=== PATIENT | male | born 1945 | race Caucasian/White ===

== ENCOUNTER 2019-06-24 13:28 | Inpatient (IN) ==
[2019-06-24] MEDS ORDERED: NALOXONE 0.4 MG/ML VIAL ONE ×2 (13:38→13:41)
[2019-06-24] MEDS ORDERED: ALBUTEROL NEB SOLN 5 MG/ML 20 ML/BOTTLE CONT NEB STA (13:48)
[2019-06-24] MEDS ORDERED: FLUMAZENIL 1 MG/10 ML VIAL IV PRN (13:48)
[2019-06-24] MEDS ORDERED: NALOXONE 0.4 MG/ML VIAL IV STA (13:48)
[2019-06-24] MEDS ORDERED: FLUMAZENIL 0.5 MG/5 ML VIAL IV ONE (13:50)
[2019-06-24] MEDS ORDERED: SODIUM CHLORIDE 0.9% 1,000 ML IV STA ×2 (13:56→14:45)
[2019-06-24 14:23] LABS: Basophils % 0.7 % (0.0-0.8); Eosinophils % 0.7 % (0.00-10.9); Hematocrit 25.2 VOL% (42.0-52.0); Hemoglobin 7.6 GM/DL (14.0-18.0); Immature Granulocytes % 0.5 %; Immature Granulocytes Absolute 0.02 #; Lymphocytes # 0.8 10*3/uL (1.4-4.0); Lymphocytes % 19.7 % (21.2-54.2); Mean Corpuscular HGB Conc 30.2 GM/DL (32-36); Mean Corpuscular Volume 105.9 FL (87-102); Mean Platelet Volume 12.4 FL (9.6-12.0); Monocytes % 9.6 % (1.7-12.7); Neutrophils % 68.8 % (38.7-73.9); Platelet Count 126 T/CUMM (130-400); Red Blood Count 2.38 MC/CUMM (3.8-5.5); White Blood Count 4.3 T/CUMM (4-12)
[2019-06-24 14:27] LABS: Apearance,Urine CLEAR (Clear); Bilirubin,Urine Negative (Negative); Blood, Urine Negative (Negative); Glucose,Urine (UA) 50 mg/dL (Negative); Hyaline Casts,Urine 8 /LPF (0-3); Ketones,Urine 5 mg/dL (Negative); Mucus,Urine Occasional /LPF (Occasional); Nitrite,Urine Negative (Negative); Protein,Urine 30 MG/DL; RBC,Urine 1 /HPF (0-4); Squamous Epithelial Cell,Urine Occasional /HPF (0-10); Urine Color Yellow (Yellow); Urine Specific Gravity 1.024 (1.001-1.035); Urine Urobilinogen < 2.0 EU/DL (0.2-1.0); WBC,Urine 1 /HPF (0-6)
[2019-06-24 14:32] LABS: Partial Thromboplastin Time 23.4 SECS (20.8-36.0)
[2019-06-24 14:32] LABS: Barbiturates Screen,Urine Negative (Negative); Benzodiazepines Screen,Urine Negative (Negative); Cannabinoid Screen,Urine Negative (Negative); Opiate Screen,Urine Positive (Negative); Phencyclidine Screen,Urine Negative (Negative)
[2019-06-24] MEDS ORDERED: PANTOPRAZOLE 40 MG VIAL IV STA (14:35)
[2019-06-24 14:48] LABS: Acetaminophen 9.1 UG/ML (10-30); Salicylate < 2.8 MG/DL (2.8-20)
[2019-06-24 14:51] LABS: Alanine Aminotransferase 29 U/L (16-61); Albumin 2.9 G/DL (3.4-5.0); Alkaline Phosphatase 84 U/L (45-117); Aspartate Amino Transferase 57 U/L (0-37); Blood Urea Nitrogen 31 MG/DL (7-18); Calcium 8.1 MG/DL (8.5-10.1); Glucose 249 MG/DL (74-106); Osmolality,Calculated 297.1 MOS/KG (273-304); Total Protein 6.2 G/DL (6.4-8.3)
[2019-06-24 14:52] LABS: CKMB % 11.6 %
[2019-06-24 15:00] LABS: ABG Base Excess 3.5 MMOL/L (-2.5-2.5); ABG HCO3 27.5 MMOL/L (20-26); ABG Oxygen Saturation 99.1 % (95-100); ABG PCO2 48.1 MM HG (35-48); ABG PH 7.388 (7.35-7.45); ABG TCO2 27.1 MMOL/L (23-27); Pt O2 Delivery Device Other
[2019-06-24] MEDS ORDERED: NOREPINEPHRINE 4 MG/4 ML VIAL IV ONE (15:16)
[2019-06-24] MEDS ORDERED: VANCOMYCIN INJ 1,000 MG in SODIUM CHLORIDE 0.9% 250 ML IV STA (15:18)
[2019-06-24] MEDS: NOREPINEPHRINE 8 MG in SODIUM CHLORIDE 0.9% 242 ML IV PRN (15:29)
[2019-06-24 16:29] LABS: ABG Base Excess 2.3 MMOL/L (-2.5-2.5); ABG HCO3 30.2 MMOL/L (20-26); ABG Oxygen Saturation 94.5 % (95-100); ABG PCO2 67.5 MM HG (35-48); ABG PH 7.268 (7.35-7.45); ABG PO2 87.3 MM HG (80-95); ABG TCO2 32.2 MMOL/L (23-27)
[2019-06-24] MEDS ORDERED: ALBUTEROL 2.5 MG/3 ML NEB RESP TX PRN (16:33)
[2019-06-24] MEDS ORDERED: ONDANSETRON 4 MG/2 ML VIAL IV PRN (16:33)
[2019-06-24] MEDS ORDERED: DEXTROSE 50% 25 GM/50 ML VIAL IV PRN (16:43)
[2019-06-24] MEDS ORDERED: GLUCAGON 1 MG VIAL IM PRN (16:43)
[2019-06-24] MEDS ORDERED: VECURONIUM 10 MG VIAL IV ONE (16:53)
[2019-06-24] MEDS ORDERED: VECURONIUM 10 MG VIAL IV STA (16:56)
[2019-06-24] MEDS ORDERED: SODIUM CHLORIDE 0.9% 1,000 ML IV PRN (17:01)
[2019-06-24] MEDS ORDERED: ETOMIDATE 20 MG/10 ML VIAL IV ONE (17:46)
[2019-06-24] MEDS ORDERED: ROCURONIUM 100 MG/10 ML VIAL IV ONE (17:47)
[2019-06-24] MEDS: PIPERACILLIN/TAZOBACTAM 3,375 MG in SODIUM CHLORIDE 0.9% 100 ML IV SCH (18:48)
[2019-06-24] MEDS: LEVOFLOXACIN INJ 750 MG in PREMIX 1 EACH IV SCH (18:48)
[2019-06-24] MEDS: SODIUM CHLORIDE 0.9% 1,000 ML IV SCH (18:48)
[2019-06-24] MEDS: ALBUTEROL/IPRATROPIUM 3 ML NEB RESP TX SCH (20:04)
[2019-06-24] MEDS: PROPOFOL 1,000 MG/100 ML BOTTLE IV SCH (20:30)
[2019-06-24] MEDS ORDERED: SODIUM CHLORIDE 0.9% 450 ML IV ONE (20:55)
[2019-06-24] MEDS: INSULIN REGULAR 100 UNIT/ML SUBCUT SCH (23:04)
[2019-06-25] MEDS: ALBUTEROL/IPRATROPIUM 3 ML NEB RESP TX SCH ×4 (01:13→19:27)
[2019-06-25] MEDS: PROPOFOL 1,000 MG/100 ML BOTTLE IV SCH ×5 (01:30→18:40)
[2019-06-25] MEDS: SODIUM CHLORIDE 0.9% 1,000 ML IV SCH ×3 (01:30→19:47)
[2019-06-25] MEDS: PIPERACILLIN/TAZOBACTAM 3,375 MG in SODIUM CHLORIDE 0.9% 100 ML IV SCH ×3 (01:55→16:40)
[2019-06-25] MEDS: NOREPINEPHRINE 8 MG in SODIUM CHLORIDE 0.9% 242 ML IV PRN ×3 (02:42→21:53)
[2019-06-25 03:12] LABS: ABG Base Excess 3.3 MMOL/L (-2.5-2.5); ABG HCO3 27.3 MMOL/L (20-26); ABG Oxygen Saturation 97.6 % (95-100); ABG PH 7.267 (7.35-7.45); ABG TCO2 29.6 MMOL/L (23-27); Allen Test Positive; Pt O2 Delivery Device Ventilator
[2019-06-25 03:19] LABS: ABG PCO2 71.2 MM HG (35-48)
[2019-06-25 04:43] LABS: Basophils % 0.4 % (0.0-0.8); Eosinophils % 0.4 % (0.00-10.9); Hematocrit 34.6 VOL% (42.0-52.0); Immature Granulocytes % 0.5 %; Immature Granulocytes Absolute 0.05 #; Lymphocytes # 1.2 10*3/uL (1.4-4.0); Lymphocytes % 12.3 % (21.2-54.2); Mean Corpuscular HGB Conc 30.9 GM/DL (32-36); Mean Corpuscular Volume 101.8 FL (87-102); Mean Platelet Volume 11.7 FL (9.6-12.0); Monocytes % 10.4 % (1.7-12.7); Red Cell Distribution Width 16.3 % (9.3-17.3)
[2019-06-25 04:46] LABS: White Blood Count 9.6 T/CUMM (4-12)
[2019-06-25 04:47] LABS: Hemoglobin 10.7 GM/DL (14.0-18.0); Platelet Count 179 T/CUMM (130-400)
[2019-06-25 05:02] LABS: Albumin 2.9 G/DL (3.4-5.0); Calcium 7.4 MG/DL (8.5-10.1); Total Protein 6.3 G/DL (6.4-8.3)
[2019-06-25] MEDS: PANTOPRAZOLE 40 MG VIAL IV SCH ×2 (05:41→16:40)
[2019-06-25] MEDS: INSULIN REGULAR 100 UNIT/ML SUBCUT SCH ×4 (09:18→21:05)
[2019-06-25] MEDS: LEVOFLOXACIN INJ 750 MG in PREMIX 1 EACH IV SCH (16:42)
[2019-06-26] MEDS: ALBUTEROL/IPRATROPIUM 3 ML NEB RESP TX SCH ×4 (00:36→20:15)
[2019-06-26] MEDS: PROPOFOL 1,000 MG/100 ML BOTTLE IV SCH ×5 (01:00→15:54)
[2019-06-26] MEDS: PIPERACILLIN/TAZOBACTAM 3,375 MG in SODIUM CHLORIDE 0.9% 100 ML IV SCH ×3 (01:11→16:09)
[2019-06-26 04:23] LABS: Calcium 7.2 MG/DL (8.5-10.1); Osmolality,Calculated 290.7 MOS/KG (273-304)
[2019-06-26 04:26] LABS: Basophils % 0.6 % (0.0-0.8); Eosinophils # 0.1 10*3/uL (0.0-0.87); Eosinophils % 1.1 % (0.00-10.9); Hematocrit 31.4 VOL% (42.0-52.0); Immature Granulocytes % 0.5 %; Immature Granulocytes Absolute 0.03 #; Lymphocytes # 0.8 10*3/uL (1.4-4.0); Lymphocytes % 12.6 % (21.2-54.2); Mean Corpuscular HGB Conc 31.8 GM/DL (32-36); Mean Corpuscular Volume 100.6 FL (87-102); Mean Platelet Volume 12.2 FL (9.6-12.0); Monocytes % 11.2 % (1.7-12.7); Red Blood Count 3.12 MC/CUMM (3.8-5.5); Red Cell Distribution Width 15.3 % (9.3-17.3)
[2019-06-26 04:27] LABS: ABG Base Excess 3.4 MMOL/L (-2.5-2.5); ABG HCO3 27.4 MMOL/L (20-26); ABG Oxygen Saturation 97.9 % (95-100); ABG PCO2 46.7 MM HG (35-48); ABG PH 7.399 (7.35-7.45); ABG PO2 92.2 MM HG (80-95); ABG TCO2 25.7 MMOL/L (23-27)
[2019-06-26 04:28] LABS: Allen Test Positive; Pt O2 Delivery Device Ventilator
[2019-06-26] MEDS: SODIUM CHLORIDE 0.9% 1,000 ML IV SCH ×5 (04:28→23:44)
[2019-06-26 05:07] LABS: Platelet Count 134 T/CUMM (130-400); White Blood Count 6.6 T/CUMM (4-12)
[2019-06-26] MEDS: PANTOPRAZOLE 40 MG VIAL IV SCH ×2 (05:21→17:28)
[2019-06-26] MEDS: INSULIN REGULAR 100 UNIT/ML SUBCUT SCH ×4 (07:46→22:06)
[2019-06-26] MEDS ORDERED: MAGNESIUM SULF RIDER 2 GM in PREMIX 1 EACH IV ONE (10:30)
[2019-06-26] MEDS ORDERED: POTASSIUM CHLORIDE 20 MEQ/15 ML UDCUP PER TUBE ONE (10:30)
[2019-06-26] MEDS: ASCORBIC ACID 500 MG TABLET PO SCH ×2 (12:37→21:45)
[2019-06-26] MEDS: LEVOFLOXACIN INJ 750 MG in PREMIX 1 EACH IV SCH (16:13)
[2019-06-26] MEDS: MORPHINE 4 MG/1 ML VIAL IV PRN ×2 (18:17→21:44)
[2019-06-26] MEDS: LORazepam 2 MG/1 ML VIAL IV PRN (23:45)
[2019-06-27] MEDS: ALBUTEROL/IPRATROPIUM 3 ML NEB RESP TX SCH ×4 (00:47→19:58)
[2019-06-27] MEDS: LORazepam 2 MG/1 ML VIAL IV PRN ×2 (01:06→08:09)
[2019-06-27] MEDS: PIPERACILLIN/TAZOBACTAM 3,375 MG in SODIUM CHLORIDE 0.9% 100 ML IV SCH ×3 (01:25→19:09)
[2019-06-27 01:47] LABS: ABG Base Excess -0.2 MMOL/L (-2.5-2.5); ABG HCO3 24.2 MMOL/L (20-26); ABG PCO2 46.3 MM HG (35-48); ABG PH 7.353 (7.35-7.45); ABG PO2 66.3 MM HG (80-95); ABG TCO2 23.4 MMOL/L (23-27); Allen Test Positive
[2019-06-27] MEDS: MORPHINE 4 MG/1 ML VIAL IV PRN ×5 (02:38→22:28)
[2019-06-27] MEDS: PANTOPRAZOLE 40 MG VIAL IV SCH ×2 (04:04→19:08)
[2019-06-27] MEDS ORDERED: FUROSEMIDE 40 MG/4 ML VIAL IV ONE (07:49)
[2019-06-27] MEDS ORDERED: FUROSEMIDE 40 MG/4 ML VIAL ONE (07:50)
[2019-06-27 07:51] LABS: Pt O2 Delivery Device Other
[2019-06-27 07:52] LABS: ABG Base Excess -2.2 MMOL/L (-2.5-2.5); ABG HCO3 22.5 MMOL/L (20-26); ABG Oxygen Saturation 93.3 % (95-100); ABG PCO2 43.8 MM HG (35-48); ABG PO2 66.5 MM HG (80-95); ABG TCO2 21.5 MMOL/L (23-27)
[2019-06-27] MEDS: ASCORBIC ACID 500 MG TABLET PO SCH ×2 (09:43→20:23)
[2019-06-27] MEDS: SODIUM CHLORIDE 0.9% 1,000 ML IV SCH ×2 (09:43→18:57)
[2019-06-27] MEDS: INSULIN REGULAR 100 UNIT/ML SUBCUT SCH ×4 (09:45→20:42)
[2019-06-27 12:40] LABS: Basophils % 0.6 % (0.0-0.8); Eosinophils % 0.4 % (0.00-10.9); Hematocrit 33.2 VOL% (42.0-52.0); Hemoglobin 10.3 GM/DL (14.0-18.0); Immature Granulocytes % 0.4 %; Immature Granulocytes Absolute 0.02 #; Lymphocytes # 0.6 10*3/uL (1.4-4.0); Lymphocytes % 13.5 % (21.2-54.2); Mean Corpuscular Volume 102.2 FL (87-102); Mean Platelet Volume 11.6 FL (9.6-12.0); Monocytes % 10.8 % (1.7-12.7); Neutrophils % 74.3 % (38.7-73.9); Platelet Count 115 T/CUMM (130-400); Red Blood Count 3.25 MC/CUMM (3.8-5.5); Red Cell Distribution Width 14.5 % (9.3-17.3); White Blood Count 4.7 T/CUMM (4-12)
[2019-06-27 13:19] LABS: Calcium 7.2 MG/DL (8.5-10.1); Osmolality,Calculated 289.8 MOS/KG (273-304)
[2019-06-27] MEDS ORDERED: MAGNESIUM SULF RIDER 2 GM in PREMIX 1 EACH IV ONE (13:52)
[2019-06-27] MEDS ORDERED: LACTULOSE 20 GM/30 ML UDCUP PO PRN (14:43)
[2019-06-27] MEDS ORDERED: POLYETHYLENE GLYCOL POWDER 17 GM PACK PO PRN (14:43)
[2019-06-27] MEDS: BISACODYL 5 MG TABLET PO PRN (15:09)
[2019-06-27] MEDS ORDERED: LORazepam 2 MG/1 ML VIAL IV PRN (16:00)
[2019-06-27] MEDS: LEVOFLOXACIN INJ 750 MG in PREMIX 1 EACH IV SCH (19:08)
[2019-06-27] MEDS: PROPOFOL 1,000 MG/100 ML BOTTLE IV SCH (19:36)
[2019-06-28] MEDS: ALBUTEROL/IPRATROPIUM 3 ML NEB RESP TX SCH ×4 (00:59→21:30)
[2019-06-28] MEDS: SODIUM CHLORIDE 0.9% 1,000 ML IV SCH ×2 (01:03→10:09)
[2019-06-28] MEDS: PIPERACILLIN/TAZOBACTAM 3,375 MG in SODIUM CHLORIDE 0.9% 100 ML IV SCH ×3 (01:07→17:14)
[2019-06-28] MEDS: MORPHINE 4 MG/1 ML VIAL IV PRN ×3 (02:04→08:00)
[2019-06-28 04:44] LABS: Calcium 7.2 MG/DL (8.5-10.1); Osmolality,Calculated 285.1 MOS/KG (273-304)
[2019-06-28 04:56] LABS: Basophils % 0.9 % (0.0-0.8); Eosinophils % 0.9 % (0.00-10.9); Hematocrit 33.3 VOL% (42.0-52.0); Hemoglobin 10.6 GM/DL (14.0-18.0); Immature Granulocytes % 1.3 %; Immature Granulocytes Absolute 0.06 #; Lymphocytes # 0.5 10*3/uL (1.4-4.0); Lymphocytes % 10.2 % (21.2-54.2); Mean Corpuscular HGB Conc 31.8 GM/DL (32-36); Mean Corpuscular Volume 101.5 FL (87-102); Mean Platelet Volume 12.1 FL (9.6-12.0); Monocytes % 9.7 % (1.7-12.7); NRBC # 0.02 10*3/uL; Platelet Count 108 T/CUMM (130-400); Red Blood Count 3.28 MC/CUMM (3.8-5.5); Red Cell Distribution Width 14.4 % (9.3-17.3); White Blood Count 4.5 T/CUMM (4-12)
[2019-06-28] MEDS: PANTOPRAZOLE 40 MG VIAL IV SCH ×2 (05:10→17:14)
[2019-06-28] MEDS ORDERED: SUCCINYLCHOLINE 200 MG/10 ML VIAL ONE (08:31)
[2019-06-28] MEDS ORDERED: ETOMIDATE 20 MG/10 ML VIAL IV ONE (08:31)
[2019-06-28] MEDS: INSULIN REGULAR 100 UNIT/ML SUBCUT SCH ×4 (10:09→21:04)
[2019-06-28] MEDS: ASCORBIC ACID 500 MG TABLET PO SCH ×2 (10:10→21:05)
[2019-06-28] MEDS: TAMSULOSIN 0.4 MG CAPSULE PO SCH (10:10)
[2019-06-28] MEDS: NICOTINE 21 MG/24 HR PATCH TRANSDERM SCH (10:11)
[2019-06-28] MEDS: ASPIRIN EC 81 MG TABLET PO SCH (12:30)
[2019-06-28] MEDS: ALUMINUM/MAGNES/SIMETH MAX STR 30 ML UDCUP PO PRN (12:31)
[2019-06-28] MEDS: LEVOFLOXACIN INJ 750 MG in PREMIX 1 EACH IV SCH (17:14)
[2019-06-29] MEDS: PIPERACILLIN/TAZOBACTAM 3,375 MG in SODIUM CHLORIDE 0.9% 100 ML IV SCH ×3 (00:30→17:52)
[2019-06-29] MEDS: ALBUTEROL/IPRATROPIUM 3 ML NEB RESP TX SCH ×4 (01:56→19:52)
[2019-06-29] MEDS: LORazepam 1 MG TABLET PO PRN ×2 (02:08→16:28)
[2019-06-29] MEDS: PANTOPRAZOLE 40 MG VIAL IV SCH ×2 (06:45→16:20)
[2019-06-29] MEDS: TAMSULOSIN 0.4 MG CAPSULE PO SCH (08:45)
[2019-06-29] MEDS: ASCORBIC ACID 500 MG TABLET PO SCH ×2 (08:45→21:28)
[2019-06-29] MEDS: INSULIN REGULAR 100 UNIT/ML SUBCUT SCH ×4 (08:46→21:28)
[2019-06-29] MEDS: ASPIRIN EC 81 MG TABLET PO SCH (08:46)
[2019-06-29] MEDS: NICOTINE 21 MG/24 HR PATCH TRANSDERM SCH (08:46)
[2019-06-29] MEDS: BISACODYL 5 MG TABLET PO PRN (09:02)
[2019-06-29 11:35] LABS: Calcium 8.1 MG/DL (8.5-10.1)
[2019-06-29] MEDS: ALUMINUM/MAGNES/SIMETH MAX STR 30 ML UDCUP PO PRN (12:20)
[2019-06-29] MEDS: SIMETHICONE CHEW 125 MG TABLET PO PRN ×2 (12:20→14:51)
[2019-06-29] MEDS: POTASSIUM CHLORIDE 20 MEQ TABLET PO SCH (14:07)
[2019-06-29] MEDS: SUCRALFATE 1 GM/10 ML UDCUP PO SCH ×2 (16:20→21:28)
[2019-06-29] MEDS: LEVOFLOXACIN INJ 750 MG in PREMIX 1 EACH IV SCH (16:21)
[2019-06-29] MEDS: traZODone 50 MG TABLET PO PRN (21:28)
[2019-06-30] MEDS: LORazepam 1 MG TABLET PO PRN ×2 (00:19→10:03)
[2019-06-30] MEDS: PIPERACILLIN/TAZOBACTAM 3,375 MG in SODIUM CHLORIDE 0.9% 100 ML IV SCH ×2 (00:20→10:04)
[2019-06-30] MEDS: ALBUTEROL/IPRATROPIUM 3 ML NEB RESP TX SCH ×4 (01:16→19:57)
[2019-06-30] MEDS: PANTOPRAZOLE 40 MG VIAL IV SCH ×2 (04:43→17:09)
[2019-06-30 04:58] LABS: Basophils % 0.6 % (0.0-0.8); Eosinophils % 1.2 % (0.00-10.9); Hematocrit 34.2 VOL% (42.0-52.0); Hemoglobin 10.8 GM/DL (14.0-18.0); Immature Granulocytes % 0.6 %; Immature Granulocytes Absolute 0.02 #; Lymphocytes # 0.4 10*3/uL (1.4-4.0); Lymphocytes % 11.8 % (21.2-54.2); Mean Corpuscular HGB Conc 31.6 GM/DL (32-36); Mean Corpuscular Volume 100.9 FL (87-102); Mean Platelet Volume 11.3 FL (9.6-12.0); Monocytes % 14.6 % (1.7-12.7); Neutrophils % 71.2 % (38.7-73.9); Platelet Count 129 T/CUMM (130-400); Red Blood Count 3.39 MC/CUMM (3.8-5.5); Red Cell Distribution Width 13.6 % (9.3-17.3); White Blood Count 3.2 T/CUMM (4-12)
[2019-06-30 05:17] LABS: Calcium 8.4 MG/DL (8.5-10.1); Osmolality,Calculated 298.3 MOS/KG (273-304)
[2019-06-30 05:24] LABS: Albumin 2.8 G/DL (3.4-5.0); Bilirubin,Total 0.8 MG/DL (0.2-1.0); Calcium 8.5 MG/DL (8.5-10.1); Osmolality,Calculated 295.6 MOS/KG (273-304); Total Protein 6.6 G/DL (6.4-8.3)
[2019-06-30] MEDS: NICOTINE 21 MG/24 HR PATCH TRANSDERM SCH (10:02)
[2019-06-30] MEDS: INSULIN REGULAR 100 UNIT/ML SUBCUT SCH ×4 (10:02→21:12)
[2019-06-30] MEDS: POTASSIUM CHLORIDE 20 MEQ TABLET PO SCH ×2 (10:02→21:14)
[2019-06-30] MEDS: SUCRALFATE 1 GM/10 ML UDCUP PO SCH ×4 (10:03→21:13)
[2019-06-30] MEDS: ASPIRIN EC 81 MG TABLET PO SCH (10:03)
[2019-06-30] MEDS: TAMSULOSIN 0.4 MG CAPSULE PO SCH (10:03)
[2019-06-30] MEDS: ASCORBIC ACID 500 MG TABLET PO SCH ×2 (10:03→21:14)
[2019-06-30 12:02] LABS: ABG Base Excess 3.1 MMOL/L (-2.5-2.5); ABG HCO3 26.3 MMOL/L (20-26); ABG Oxygen Saturation 51.4 % (95-100); ABG PCO2 44.8 MM HG (35-48); ABG PH 7.408 (7.35-7.45); ABG TCO2 25.6 MMOL/L (23-27)
[2019-06-30 12:03] LABS: ABG PO2 27.6 MM HG (80-95)
[2019-06-30] MEDS ORDERED: FUROSEMIDE 40 MG/4 ML VIAL IV ONE (12:35)
[2019-06-30] MEDS: CHOLECALCIFEROL 5,000 UNIT TABLET PO SCH (14:09)
[2019-06-30] MEDS: traZODone 50 MG TABLET PO PRN (21:14)
[2019-07-01] MEDS: ALBUTEROL/IPRATROPIUM 3 ML NEB RESP TX SCH ×4 (00:45→20:15)
[2019-07-01] MEDS: PANTOPRAZOLE 40 MG VIAL IV SCH ×2 (05:11→17:02)
[2019-07-01 06:13] LABS: Basophils % 0.9 % (0.0-0.8); Eosinophils % 1.2 % (0.00-10.9); Hematocrit 34.5 VOL% (42.0-52.0); Hemoglobin 10.9 GM/DL (14.0-18.0); Immature Granulocytes % 0.3 %; Immature Granulocytes Absolute 0.01 #; Lymphocytes # 0.6 10*3/uL (1.4-4.0); Lymphocytes % 17.8 % (21.2-54.2); Mean Corpuscular HGB Conc 31.6 GM/DL (32-36); Mean Corpuscular Volume 100.3 FL (87-102); Mean Platelet Volume 11.7 FL (9.6-12.0); Monocytes % 9.8 % (1.7-12.7); Platelet Count 124 T/CUMM (130-400); Red Blood Count 3.44 MC/CUMM (3.8-5.5); Red Cell Distribution Width 13.8 % (9.3-17.3); White Blood Count 3.3 T/CUMM (4-12)
[2019-07-01 06:42] LABS: Calcium 8.7 MG/DL (8.5-10.1); Osmolality,Calculated 288.8 MOS/KG (273-304)
[2019-07-01] MEDS: NICOTINE 21 MG/24 HR PATCH TRANSDERM SCH (09:29)
[2019-07-01] MEDS: ASCORBIC ACID 500 MG TABLET PO SCH ×2 (09:29→21:49)
[2019-07-01] MEDS: TAMSULOSIN 0.4 MG CAPSULE PO SCH (09:29)
[2019-07-01] MEDS: POTASSIUM CHLORIDE 20 MEQ TABLET PO SCH ×2 (09:30→21:50)
[2019-07-01] MEDS: VENLAFAXINE XR 75 MG CAPSULE PO SCH (09:30)
[2019-07-01] MEDS: LORazepam 1 MG TABLET PO PRN (09:30)
[2019-07-01] MEDS: LEVOFLOXACIN 750 MG TABLET PO SCH (09:30)
[2019-07-01] MEDS: CHOLECALCIFEROL 5,000 UNIT TABLET PO SCH (09:30)
[2019-07-01] MEDS: ASPIRIN EC 81 MG TABLET PO SCH (09:30)
[2019-07-01] MEDS: INSULIN REGULAR 100 UNIT/ML SUBCUT SCH ×4 (09:31→21:50)
[2019-07-01] MEDS: SUCRALFATE 1 GM/10 ML UDCUP PO SCH ×4 (09:31→21:49)
[2019-07-01] MEDS: ALUMINUM/MAGNES/SIMETH MAX STR 30 ML UDCUP PO PRN (10:27)
[2019-07-01] MEDS: MULTIVITAMIN (OCUVITE) TABLET PO SCH (11:52)
[2019-07-01] MEDS: FOLIC ACID 1 MG TABLET PO SCH (11:52)
[2019-07-01] MEDS: THIAMINE 100 MG TABLET PO SCH (11:52)
[2019-07-01] MEDS ORDERED: MAGNESIUM SULF RIDER 2 GM in PREMIX 1 EACH IV ONE (13:58)
[2019-07-01] MEDS: SIMETHICONE CHEW 125 MG TABLET PO PRN (17:01)
[2019-07-01] MEDS: MAGNESIUM CHLORIDE 64 MG TABLET PO SCH (21:50)
[2019-07-01] MEDS: traZODone 50 MG TABLET PO PRN (21:50)
[2019-07-02] MEDS: ALBUTEROL/IPRATROPIUM 3 ML NEB RESP TX SCH ×4 (02:44→19:25)
[2019-07-02] MEDS: PANTOPRAZOLE 40 MG VIAL IV SCH ×2 (04:04→17:43)
[2019-07-02 06:01] LABS: Calcium 8.8 MG/DL (8.5-10.1); Osmolality,Calculated 289.8 MOS/KG (273-304)
[2019-07-02] MEDS ORDERED: FUROSEMIDE 20 MG/2 ML VIAL IV ONE ×2 (08:37→15:56)
[2019-07-02] MEDS: TAMSULOSIN 0.4 MG CAPSULE PO SCH (10:04)
[2019-07-02] MEDS: SUCRALFATE 1 GM/10 ML UDCUP PO SCH ×4 (10:04→20:24)
[2019-07-02] MEDS: INSULIN REGULAR 100 UNIT/ML SUBCUT SCH ×4 (10:04→21:35)
[2019-07-02] MEDS: CHOLECALCIFEROL 5,000 UNIT TABLET PO SCH (10:05)
[2019-07-02] MEDS: MULTIVITAMIN (OCUVITE) TABLET PO SCH (10:05)
[2019-07-02] MEDS: LEVOFLOXACIN 750 MG TABLET PO SCH (10:05)
[2019-07-02] MEDS: ASPIRIN EC 81 MG TABLET PO SCH (10:06)
[2019-07-02] MEDS: THIAMINE 100 MG TABLET PO SCH (10:06)
[2019-07-02] MEDS: MAGNESIUM CHLORIDE 64 MG TABLET PO SCH ×2 (10:06→20:24)
[2019-07-02] MEDS: FOLIC ACID 1 MG TABLET PO SCH (10:06)
[2019-07-02] MEDS: VENLAFAXINE XR 75 MG CAPSULE PO SCH (10:06)
[2019-07-02] MEDS: POTASSIUM CHLORIDE 20 MEQ TABLET PO SCH ×2 (10:06→20:24)
[2019-07-02] MEDS: NICOTINE 21 MG/24 HR PATCH TRANSDERM SCH (12:11)
[2019-07-02] MEDS: ASCORBIC ACID 500 MG TABLET PO SCH ×2 (12:12→20:23)
[2019-07-02] MEDS: METOPROLOL TARTRATE 25 MG TABLET PO SCH ×2 (14:45→20:24)
[2019-07-02] MEDS: traZODone 50 MG TABLET PO PRN (20:24)
[2019-07-03] MEDS: ALBUTEROL/IPRATROPIUM 3 ML NEB RESP TX SCH ×3 (00:55→13:00)
[2019-07-03] MEDS: PANTOPRAZOLE 40 MG VIAL IV SCH (05:24)
[2019-07-03 05:31] LABS: Basophils % 0.6 % (0.0-0.8); Eosinophils # 0.1 10*3/uL (0.0-0.87); Eosinophils % 1.8 % (0.00-10.9); Hematocrit 33.5 VOL% (42.0-52.0); Hemoglobin 10.6 GM/DL (14.0-18.0); Immature Granulocytes % 0.3 %; Immature Granulocytes Absolute 0.01 #; Lymphocytes # 0.6 10*3/uL (1.4-4.0); Lymphocytes % 16.8 % (21.2-54.2); Mean Corpuscular HGB Conc 31.6 GM/DL (32-36); Mean Corpuscular Volume 100.3 FL (87-102); Mean Platelet Volume 11.7 FL (9.6-12.0); Monocytes % 10.9 % (1.7-12.7); Neutrophils % 69.6 % (38.7-73.9); Platelet Count 127 T/CUMM (130-400); Red Blood Count 3.34 MC/CUMM (3.8-5.5); Red Cell Distribution Width 13.5 % (9.3-17.3); White Blood Count 3.4 T/CUMM (4-12)
[2019-07-03 06:12] LABS: Calcium 9.1 MG/DL (8.5-10.1)
[2019-07-03] MEDS: INSULIN REGULAR 100 UNIT/ML SUBCUT SCH ×3 (08:11→16:33)
[2019-07-03] MEDS: NICOTINE 21 MG/24 HR PATCH TRANSDERM SCH (08:12)
[2019-07-03] MEDS: METOPROLOL TARTRATE 25 MG TABLET PO SCH (08:13)
[2019-07-03] MEDS: CHOLECALCIFEROL 5,000 UNIT TABLET PO SCH (08:13)
[2019-07-03] MEDS: FOLIC ACID 1 MG TABLET PO SCH (08:13)
[2019-07-03] MEDS: MAGNESIUM CHLORIDE 64 MG TABLET PO SCH (08:13)
[2019-07-03] MEDS: ASCORBIC ACID 500 MG TABLET PO SCH (08:13)
[2019-07-03] MEDS: TAMSULOSIN 0.4 MG CAPSULE PO SCH (08:13)
[2019-07-03] MEDS: VENLAFAXINE XR 75 MG CAPSULE PO SCH (08:13)
[2019-07-03] MEDS: POTASSIUM CHLORIDE 20 MEQ TABLET PO SCH (08:13)
[2019-07-03] MEDS: MULTIVITAMIN (OCUVITE) TABLET PO SCH (08:13)
[2019-07-03] MEDS: THIAMINE 100 MG TABLET PO SCH (08:13)
[2019-07-03] MEDS: LEVOFLOXACIN 750 MG TABLET PO SCH (08:13)
[2019-07-03] MEDS: ASPIRIN EC 81 MG TABLET PO SCH (08:13)
[2019-07-03] MEDS: SUCRALFATE 1 GM/10 ML UDCUP PO SCH ×3 (08:14→16:40)
[2019-07-03] MEDS ORDERED: FUROSEMIDE 20 MG/2 ML VIAL IV SCH (09:00)
[2019-07-03 14:08] VITALS: BP 134/72
[2019-07-03] MEDS ORDERED: PNEUMOCOCCAL VACCINE (13 VALENT) 0.5 ML SYRINGE IM ONE (17:30)
== END 2019-07-03 18:03 | DRG 917 ==
LOC: EDUNIT# → EDBD → N.ED 13:28 → N.EDINP 17:10 → SUATTDRO 17:10 → N.CC 17:41 → N.5E 06-28 18:12
PROVIDERS: ADMIT Internal Medicine; ATTEND Internal Medicine Geriatric Medicine

== ENCOUNTER 2019-08-15 20:04 | Inpatient (IN) ==
[2019-08-15] MEDS ORDERED: ONDANSETRON 4 MG/2 ML VIAL IV STA (20:44)
[2019-08-15] MEDS ORDERED: PANTOPRAZOLE 40 MG VIAL IV STA (20:44)
[2019-08-15] MEDS ORDERED: SODIUM CHLORIDE 0.9% 1,000 ML IV STA (20:44)
[2019-08-15 21:02] LABS: Basophils % 0.7 % (0.0-0.8); Eosinophils % 0.7 % (0.00-10.9); Hematocrit 24.9 VOL% (42.0-52.0); Hemoglobin 7.4 GM/DL (14.0-18.0); Immature Granulocytes % 0.5 %; Immature Granulocytes Absolute 0.03 #; Lymphocytes % 17.4 % (21.2-54.2); Mean Corpuscular HGB Conc 29.7 GM/DL (32-36); Mean Corpuscular Volume 92.2 FL (87-102); Mean Platelet Volume 12.3 FL (9.6-12.0); Monocytes % 8.8 % (1.7-12.7); Neutrophils % 71.9 % (38.7-73.9); Platelet Count 156 T/CUMM (130-400); Red Cell Distribution Width 16.7 % (9.3-17.3); White Blood Count 5.5 T/CUMM (4-12)
[2019-08-15] MEDS ORDERED: VANCOMYCIN INJ 1,000 MG in SODIUM CHLORIDE 0.9% 250 ML IV STA (21:10)
[2019-08-15 21:20] LABS: Alanine Aminotransferase 25 U/L (16-61); Alkaline Phosphatase 94 U/L (45-117); Aspartate Amino Transferase 55 U/L (0-37); Blood Urea Nitrogen 40 MG/DL (7-18); CKMB % 11.6 %; Estimated Glom Filtration Rate 43 ML/MIN; Glucose 239 MG/DL (74-106); INR 1.1; Osmolality,Calculated 290.8 MOS/KG (273-304); PT Patient Result 11.9 SECS (9.6-12.2); Total Protein 6.8 G/DL (6.4-8.3)
[2019-08-15] MEDS ORDERED: NOREPINEPHRINE 4 MG/4 ML VIAL IV ONE (21:26)
[2019-08-15] MEDS: NOREPINEPHRINE 8 MG in SODIUM CHLORIDE 0.9% 242 ML IV PRN (21:36)
[2019-08-15] MEDS ORDERED: SODIUM CHLORIDE 0.9% 1,000 ML IV PRN (23:27)
[2019-08-15] MEDS: PIPERACILLIN/TAZOBACTAM 3,375 MG in SODIUM CHLORIDE 0.9% 100 ML IV SCH (23:45)
[2019-08-16] MEDS ORDERED: PANTOPRAZOLE INJ 80 MG in SODIUM CHLORIDE 0.9% 100 ML IV ONE
[2019-08-16] MEDS: SODIUM CHLORIDE 0.9% 1,000 ML IV SCH ×4 (00:10→19:31)
[2019-08-16] MEDS ORDERED: SODIUM CHLORIDE 0.9% 1,300 ML IV ONE (00:58)
[2019-08-16] MEDS: PANTOPRAZOLE INJ 200 MG in SODIUM CHLORIDE 0.9% 250 ML IV SCH (01:02)
[2019-08-16] MEDS ORDERED: VASOPRESSIN 100 UNITS in SODIUM CHLORIDE 0.9% 95 ML IV PRN (01:30)
[2019-08-16] MEDS ORDERED: INFLUENZA VIRUS VACCINE 0.5 ML SYRINGE IM ONE (01:57)
[2019-08-16] MEDS: NOREPINEPHRINE 8 MG in SODIUM CHLORIDE 0.9% 242 ML IV PRN ×7 (02:21→23:56)
[2019-08-16] MEDS: OCTREOTIDE 500 MCG in SODIUM CHLORIDE 0.9% 100 ML IV SCH ×4 (02:54→21:55)
[2019-08-16 04:01] LABS: Basophils # 0.1 10*3/uL (0.0-0.2); Basophils % 0.5 % (0.0-0.8); Hematocrit 32.4 VOL% (42.0-52.0); Hemoglobin 9.6 GM/DL (14.0-18.0); Immature Granulocytes % 0.5 %; Immature Granulocytes Absolute 0.05 #; Lymphocytes # 1.1 10*3/uL (1.4-4.0); Lymphocytes % 11.4 % (21.2-54.2); Mean Corpuscular HGB Conc 29.6 GM/DL (32-36); Mean Corpuscular Volume 93.6 FL (87-102); Mean Platelet Volume 12.1 FL (9.6-12.0); Monocytes % 10.7 % (1.7-12.7); Neutrophils % 76.9 % (38.7-73.9); Platelet Count 217 T/CUMM (130-400); Red Blood Count 3.46 MC/CUMM (3.8-5.5); Red Cell Distribution Width 16.2 % (9.3-17.3); White Blood Count 9.3 T/CUMM (4-12)
[2019-08-16 04:44] LABS: Albumin 3.1 G/DL (3.4-5.0); Bilirubin,Total 1.3 MG/DL (0.2-1.0); Calcium 7.7 MG/DL (8.5-10.1); Osmolality,Calculated 299.3 MOS/KG (273-304); Total Protein 6.9 G/DL (6.4-8.3)
[2019-08-16 06:06] LABS: ABG Base Excess 3.1 MMOL/L (-2.5-2.5); ABG Oxygen Saturation 89.9 % (95-100); ABG PCO2 56.3 MM HG (35-48); ABG PH 7.335 (7.35-7.45); ABG PO2 61.8 MM HG (80-95); ABG TCO2 27.6 MMOL/L (23-27); Allen Test Positive; Pt O2 Delivery Device Venturi Mask
[2019-08-16] MEDS: methylPREDNISolone SOD SUC 40 MG/1 ML VIAL IV SCH ×2 (07:53→16:54)
[2019-08-16] MEDS: PIPERACILLIN/TAZOBACTAM 3,375 MG in SODIUM CHLORIDE 0.9% 100 ML IV SCH ×2 (07:53→16:54)
[2019-08-16 09:18] LABS: Apearance,Urine CLEAR (Clear); Bilirubin,Urine Negative (Negative); Blood, Urine Negative (Negative); Glucose,Urine (UA) Negative (Negative); Hyaline Casts,Urine 7 /LPF (0-3); Ketones,Urine 5 mg/dL (Negative); Nitrite,Urine Negative (Negative); Protein,Urine 30 MG/DL; RBC,Urine 2 /HPF (0-4); Squamous Epithelial Cell,Urine Occasional /HPF (0-10); Urine Color Yellow (Yellow); Urine Urobilinogen < 2.0 EU/DL (0.2-1.0); WBC,Urine 1 /HPF (0-6)
[2019-08-16] MEDS ORDERED: NOREPINEPHRINE 4 MG/4 ML VIAL IV ONE ×2 (09:34→16:44)
[2019-08-16 09:40] LABS: Hematocrit 32.6 VOL% (42.0-52.0); Hemoglobin 9.8 GM/DL (14.0-18.0)
[2019-08-16] MEDS: ALBUTEROL/IPRATROPIUM 3 ML NEB RESP TX SCH ×2 (15:00→18:59)
[2019-08-16] MEDS ORDERED: ALBUMIN 25% 25 GM in PREMIX 1 EACH IV ONE (15:32)
[2019-08-16] MEDS ORDERED: DEXTROSE 50% 25 GM/50 ML VIAL IV PRN (15:35)
[2019-08-16] MEDS ORDERED: GLUCAGON 1 MG VIAL IM PRN (15:35)
[2019-08-16 16:21] LABS: ABG Base Excess 0.6 MMOL/L (-2.5-2.5); ABG HCO3 25.9 MMOL/L (20-26); ABG Oxygen Saturation 92.2 % (95-100); ABG PCO2 44.4 MM HG (35-48); ABG PH 7.384 (7.35-7.45); ABG PO2 67.9 MM HG (80-95); ABG TCO2 27.3 MMOL/L (23-27); Allen Test Positive; Pt O2 Delivery Device Other
[2019-08-16 18:09] LABS: Hematocrit 30.8 VOL% (42.0-52.0); Hemoglobin 9.4 GM/DL (14.0-18.0)
[2019-08-16] MEDS: INSULIN LISPRO 100 UNIT/ML SUBCUT SCH (18:10)
[2019-08-16] MEDS: VANCOMYCIN INJ 1,250 MG in SODIUM CHLORIDE 0.9% 250 ML IV SCH (21:05)
[2019-08-16 21:18] LABS: Hematocrit 30.7 VOL% (42.0-52.0); Hemoglobin 9.2 GM/DL (14.0-18.0)
[2019-08-16] MEDS: ASCORBIC ACID 500 MG TABLET PO SCH (21:26)
[2019-08-16] MEDS ORDERED: METOPROLOL TARTRATE 5 MG/5 ML VIAL IV ONE (21:39)
[2019-08-16] MEDS: NICOTINE 14 MG/24 HR PATCH TRANSDERM PRN (21:48)
[2019-08-16 23:11] LABS: Hematocrit 32.1 VOL% (42.0-52.0); Hemoglobin 9.4 GM/DL (14.0-18.0); Immature Granulocytes % 0.8 %; Immature Granulocytes Absolute 0.07 #; Lymphocytes # 0.5 10*3/uL (1.4-4.0); Lymphocytes % 5.8 % (21.2-54.2); Mean Corpuscular HGB Conc 29.3 GM/DL (32-36); Mean Corpuscular Volume 94.7 FL (87-102); Mean Platelet Volume 11.4 FL (9.6-12.0); Monocytes % 3.7 % (1.7-12.7); NRBC # 0.05 10*3/uL; Neutrophils % 89.7 % (38.7-73.9); Platelet Count 246 T/CUMM (130-400); Red Blood Count 3.39 MC/CUMM (3.8-5.5); Red Cell Distribution Width 16.4 % (9.3-17.3); White Blood Count 8.5 T/CUMM (4-12)
[2019-08-16 23:29] LABS: Alanine Aminotransferase 241 U/L (16-61); Albumin 2.8 G/DL (3.4-5.0); Alkaline Phosphatase 87 U/L (45-117); Aspartate Amino Transferase 449 U/L (0-37); Blood Urea Nitrogen 41 MG/DL (7-18); CKMB % 9.5 %; Calcium 6.2 MG/DL (8.5-10.1); Estimated Glom Filtration Rate 45 ML/MIN; Glucose 376 MG/DL (74-106); Osmolality,Calculated 290.4 MOS/KG (273-304); Total Protein 6.6 G/DL (6.4-8.3)
[2019-08-16 23:30] LABS: ABG Base Excess -2.2 MMOL/L (-2.5-2.5); ABG HCO3 22.6 MMOL/L (20-26); ABG PCO2 44.3 MM HG (35-48); ABG PH 7.335 (7.35-7.45); ABG TCO2 21.8 MMOL/L (23-27)
[2019-08-17] MEDS: OCTREOTIDE 500 MCG in SODIUM CHLORIDE 0.9% 100 ML IV SCH ×2 (00:13→09:03)
[2019-08-17] MEDS: methylPREDNISolone SOD SUC 40 MG/1 ML VIAL IV SCH ×4 (00:22→23:54)
[2019-08-17] MEDS: SODIUM CHLORIDE 0.9% 1,000 ML IV SCH ×2 (00:23→21:10)
[2019-08-17] MEDS: PIPERACILLIN/TAZOBACTAM 3,375 MG in SODIUM CHLORIDE 0.9% 100 ML IV SCH ×4 (00:24→23:56)
[2019-08-17] MEDS: ALBUTEROL/IPRATROPIUM 3 ML NEB RESP TX SCH ×4 (00:25→19:30)
[2019-08-17] MEDS: INSULIN LISPRO 100 UNIT/ML SUBCUT SCH ×5 (01:43→23:57)
[2019-08-17] MEDS: ONDANSETRON 4 MG/2 ML VIAL IV PRN (03:15)
[2019-08-17] MEDS: NOREPINEPHRINE 8 MG in SODIUM CHLORIDE 0.9% 242 ML IV PRN (03:17)
[2019-08-17] MEDS: PANTOPRAZOLE INJ 200 MG in SODIUM CHLORIDE 0.9% 250 ML IV SCH (03:23)
[2019-08-17 05:21] LABS: Hematocrit 31.6 VOL% (42.0-52.0); Hemoglobin 9.4 GM/DL (14.0-18.0); Immature Granulocytes % 0.8 %; Immature Granulocytes Absolute 0.06 #; Lymphocytes # 0.4 10*3/uL (1.4-4.0); Lymphocytes % 5.5 % (21.2-54.2); Mean Corpuscular HGB Conc 29.7 GM/DL (32-36); Mean Corpuscular Volume 92.7 FL (87-102); Mean Platelet Volume 11.6 FL (9.6-12.0); Monocytes % 5.4 % (1.7-12.7); NRBC # 0.06 10*3/uL; Neutrophils % 88.3 % (38.7-73.9); Platelet Count 236 T/CUMM (130-400); Red Blood Count 3.41 MC/CUMM (3.8-5.5); Red Cell Distribution Width 16.4 % (9.3-17.3); White Blood Count 7.6 T/CUMM (4-12)
[2019-08-17 05:37] LABS: Albumin 2.9 G/DL (3.4-5.0); Bilirubin,Total 0.8 MG/DL (0.2-1.0); Calcium 6.3 MG/DL (8.5-10.1); Total Protein 6.2 G/DL (6.4-8.3)
[2019-08-17] MEDS: NOREPINEPHRINE 16 MG in SODIUM CHLORIDE 0.9% 234 ML IV PRN ×2 (06:01→12:48)
[2019-08-17] MEDS ORDERED: PROPOFOL 200 MG/20 ML VIAL IV ONE (10:00)
[2019-08-17] MEDS ORDERED: LIDOCAINE 100 MG/5 ML SYRINGE ONE (10:00)
[2019-08-17] MEDS ORDERED: MAGNESIUM SULF RIDER 2 GM in PREMIX 1 EACH IV ONE (10:00)
[2019-08-17] MEDS ORDERED: FUROSEMIDE 40 MG/4 ML VIAL IV ONE (10:00)
[2019-08-17] MEDS ORDERED: ETOMIDATE 20 MG/10 ML VIAL IV ONE (10:00)
[2019-08-17] MEDS: ASCORBIC ACID 500 MG TABLET PO SCH ×2 (10:23→20:02)
[2019-08-17] MEDS: INSULIN GLARGINE 100 UNIT/ML SUBCUT SCH (10:24)
[2019-08-17] MEDS ORDERED: CALCIUM GLUCONATE 1,000 MG in SODIUM CHLORIDE 0.9% 100 ML IV ONE (10:30)
[2019-08-17] MEDS ORDERED: DILTIAZEM 50 MG/10 ML VIAL IV ONE (12:02)
[2019-08-17 12:16] LABS: Hematocrit 31.3 VOL% (42.0-52.0); Hemoglobin 9.3 GM/DL (14.0-18.0)
[2019-08-17] MEDS: dilTIAZem Drip 125 MG/125 ML PREMIX IV SCH (12:20)
[2019-08-17] MEDS: THIAMINE 100 MG TABLET PO SCH (12:58)
[2019-08-17] MEDS: FOLIC ACID 1 MG TABLET PO SCH (12:59)
[2019-08-17] MEDS: VANCOMYCIN INJ 1,250 MG in SODIUM CHLORIDE 0.9% 250 ML IV SCH (20:03)
[2019-08-17] MEDS: PANTOPRAZOLE 40 MG TABLET PO SCH (20:03)
[2019-08-17] MEDS ORDERED: MORPHINE 4 MG/1 ML VIAL IV ONE (22:10)
[2019-08-17] MEDS: NICOTINE 14 MG/24 HR PATCH TRANSDERM PRN (22:33)
[2019-08-18 00:13] LABS: ABG Base Excess -0.4 MMOL/L (-2.5-2.5); ABG HCO3 25.8 MMOL/L (20-26); ABG Oxygen Saturation 89.4 % (95-100); ABG PCO2 49.7 MM HG (35-48); ABG PH 7.333 (7.35-7.45); ABG PO2 63.1 MM HG (80-95); ABG TCO2 27.3 MMOL/L (23-27)
[2019-08-18] MEDS: ALBUTEROL/IPRATROPIUM 3 ML NEB RESP TX SCH ×4 (01:39→19:27)
[2019-08-18] MEDS: ONDANSETRON 4 MG/2 ML VIAL IV PRN ×3 (02:58→19:36)
[2019-08-18] MEDS: INSULIN LISPRO 100 UNIT/ML SUBCUT SCH ×3 (06:12→18:21)
[2019-08-18] MEDS: SODIUM CHLORIDE 0.9% 1,000 ML IV SCH ×2 (07:13→20:58)
[2019-08-18] MEDS: PIPERACILLIN/TAZOBACTAM 3,375 MG in SODIUM CHLORIDE 0.9% 100 ML IV SCH ×2 (08:24→15:51)
[2019-08-18] MEDS: methylPREDNISolone SOD SUC 40 MG/1 ML VIAL IV SCH ×3 (08:25→23:55)
[2019-08-18] MEDS: ASCORBIC ACID 500 MG TABLET PO SCH ×2 (08:29→21:35)
[2019-08-18] MEDS: PANTOPRAZOLE 40 MG TABLET PO SCH ×2 (08:29→21:34)
[2019-08-18] MEDS: LACTULOSE 20 GM/30 ML UDCUP PO SCH ×2 (08:29→21:34)
[2019-08-18] MEDS: THIAMINE 100 MG TABLET PO SCH (08:29)
[2019-08-18] MEDS: FOLIC ACID 1 MG TABLET PO SCH (08:29)
[2019-08-18] MEDS: INSULIN GLARGINE 100 UNIT/ML SUBCUT SCH (08:30)
[2019-08-18 09:02] LABS: Calcium 6.5 MG/DL (8.5-10.1)
[2019-08-18] MEDS: dilTIAZem Drip 125 MG/125 ML PREMIX IV SCH ×2 (12:01→20:49)
[2019-08-18] MEDS: VANCOMYCIN INJ 1,250 MG in SODIUM CHLORIDE 0.9% 250 ML IV SCH (21:35)
[2019-08-18 22:02] LABS: ABG Base Excess -2.2 MMOL/L (-2.5-2.5); ABG HCO3 22.5 MMOL/L (20-26); ABG Oxygen Saturation 90.5 % (95-100); ABG PCO2 50.2 MM HG (35-48); ABG PH 7.298 (7.35-7.45); ABG PO2 64.4 MM HG (80-95); ABG TCO2 22.9 MMOL/L (23-27); Allen Test Positive; Pt O2 Delivery Device Other
[2019-08-19] MEDS: ONDANSETRON 4 MG/2 ML VIAL IV PRN
[2019-08-19] MEDS: PIPERACILLIN/TAZOBACTAM 3,375 MG in SODIUM CHLORIDE 0.9% 100 ML IV SCH (00:07)
[2019-08-19] MEDS: INSULIN LISPRO 100 UNIT/ML SUBCUT SCH ×2 (01:17→09:23)
[2019-08-19] MEDS: ALBUTEROL/IPRATROPIUM 3 ML NEB RESP TX SCH ×2 (02:19→08:50)
[2019-08-19 02:32] VITALS: BP 92/66
[2019-08-19 03:14] LABS: Allen Test Positive; Pt O2 Delivery Device Other
[2019-08-19 03:15] LABS: ABG Base Excess -7.9 MMOL/L (-2.5-2.5); ABG HCO3 17.8 MMOL/L (20-26); ABG PO2 64.6 MM HG (80-95); ABG TCO2 19.5 MMOL/L (23-27)
[2019-08-19 03:17] LABS: ABG PH 7.187 (7.35-7.45)
[2019-08-19] MEDS ORDERED: traZODone 50 MG TABLET PO ONE (03:38)
[2019-08-19] MEDS ORDERED: SODIUM BICARBONATE 50 MEQ/50 ML VIAL IV ONE (03:39)
[2019-08-19 06:13] LABS: Allen Test Positive; Pt O2 Delivery Device Other
[2019-08-19 06:14] LABS: INR 1.8
[2019-08-19 06:16] LABS: ABG Base Excess -8.7 MMOL/L (-2.5-2.5); ABG HCO3 20.5 MMOL/L (20-26); ABG Oxygen Saturation 84.8 % (95-100); ABG PCO2 62.1 MM HG (35-48); ABG PO2 64.5 MM HG (80-95); ABG TCO2 22.4 MMOL/L (23-27)
[2019-08-19 06:18] LABS: ABG PH 7.136 (7.35-7.45)
[2019-08-19 06:19] LABS: Hematocrit 30.1 VOL% (42.0-52.0); Immature Granulocytes % 0.8 %; Immature Granulocytes Absolute 0.05 #; Lymphocytes # 0.1 10*3/uL (1.4-4.0); Lymphocytes % 2.1 % (21.2-54.2); Mean Corpuscular HGB Conc 28.6 GM/DL (32-36); Mean Corpuscular Volume 96.2 FL (87-102); Mean Platelet Volume 11.9 FL (9.6-12.0); Monocytes % 5.9 % (1.7-12.7); Neutrophils % 91.2 % (38.7-73.9); Platelet Count 153 T/CUMM (130-400); Red Blood Count 3.13 MC/CUMM (3.8-5.5); Red Cell Distribution Width 15.8 % (9.3-17.3); White Blood Count 6.1 T/CUMM (4-12)
[2019-08-19] MEDS ORDERED: NOREPINEPHRINE 4 MG/4 ML VIAL IV ONE (06:19)
[2019-08-19 06:20] LABS: Hemoglobin 8.6 GM/DL (14.0-18.0)
[2019-08-19 06:22] LABS: CKMB % 2.7 %
[2019-08-19 06:24] LABS: Albumin 2.8 G/DL (3.4-5.0); Bilirubin,Total 1.2 MG/DL (0.2-1.0); Calcium 6.3 MG/DL (8.5-10.1); Osmolality,Calculated 291.1 MOS/KG (273-304); Total Protein 6.1 G/DL (6.4-8.3)
[2019-08-19] MEDS: NOREPINEPHRINE 8 MG in SODIUM CHLORIDE 0.9% 242 ML IV PRN (06:25)
[2019-08-19 06:31] LABS: Band Neutrophils 1 % (0-10); Lymphocytes 2 % (20-55); Platelet Estimate Adequate; Segmented Neutrophils 87 % (50-85); Total Cells Counted 100
[2019-08-19] MEDS ORDERED: ETOMIDATE 20 MG/10 ML VIAL IV ONE ×2 (06:31→07:21)
[2019-08-19] MEDS ORDERED: VECURONIUM 10 MG VIAL IV ONE ×2 (06:31→07:21)
[2019-08-19] MEDS ORDERED: PROPOFOL 1,000 MG/100 ML BOTTLE IV ONE (07:41)
[2019-08-19 08:30] LABS: Pt O2 Delivery Device Ventilator
[2019-08-19 08:31] LABS: ABG Base Excess -6.6 MMOL/L (-2.5-2.5); ABG HCO3 18.8 MMOL/L (20-26); ABG Oxygen Saturation 87.5 % (95-100); ABG PCO2 51.7 MM HG (35-48); ABG PH 7.221 (7.35-7.45); ABG PO2 61.7 MM HG (80-95)
[2019-08-19] MEDS ORDERED: PROPOFOL 1,000 MG/100 ML BOTTLE IV SCH (09:25)
[2019-09-20] MEDS ORDERED: ROPIVACAINE 0.5% 30 ML VIAL ONE (06:12)
[2019-09-20] MEDS ORDERED: DEXAMETHASONE 4 MG/1 ML VIAL ONE (06:13)
[2019-09-20] MEDS ORDERED: EPINEPHrine 1 MG/ML VIAL ONE (06:13)
[2019-09-20] MEDS ORDERED: ceFAZolin 1,000 MG VIAL ONE (10:45)
== END 2019-08-19 10:27 | disposition hospice, home (50) | DRG 871 ==
LOC: N.ED 20:04 → SUATTDRO 23:24 → N.EDINP 23:24 → N.ICU 23:50
PROVIDERS: ADMIT Internal Medicine; ATTEND Phlebology

== ENCOUNTER 2019-09-08 09:06 | Inpatient (IN) ==
[2019-09-08] MEDS ORDERED: ONDANSETRON 4 MG/2 ML VIAL IV STA (09:30)
[2019-09-08] MEDS ORDERED: PANTOPRAZOLE 40 MG VIAL IV STA (09:30)
[2019-09-08] MEDS ORDERED: SODIUM CHLORIDE 0.9% 1,000 ML IV STA (09:30)
[2019-09-08 10:07] LABS: Basophils % 0.8 % (0.0-0.8); Eosinophils # 0.1 10*3/uL (0.0-0.87); Eosinophils % 3.2 % (0.00-10.9); Hematocrit 24.3 VOL% (42.0-52.0); Immature Granulocytes Absolute 0.05 #; Lymphocytes # 0.7 10*3/uL (1.4-4.0); Lymphocytes % 27.3 % (21.2-54.2); Mean Corpuscular HGB Conc 28.8 GM/DL (32-36); Mean Corpuscular Volume 86.8 FL (87-102); Mean Platelet Volume 11.7 FL (9.6-12.0); Monocytes % 11.6 % (1.7-12.7); Neutrophils % 55.1 % (38.7-73.9); Platelet Count 246 T/CUMM (130-400); Red Cell Distribution Width 16.2 % (9.3-17.3); White Blood Count 2.5 T/CUMM (4-12)
[2019-09-08 10:20] LABS: INR 1.1; PT Patient Result 11.7 SECS (9.6-12.2); Partial Thromboplastin Time 25.3 SECS (20.8-36.0)
[2019-09-08 10:25] LABS: Alanine Aminotransferase 42 U/L (16-61); Alkaline Phosphatase 139 U/L (45-117); Aspartate Amino Transferase 21 U/L (0-37); Blood Urea Nitrogen 17 MG/DL (7-18); Calcium 8.5 MG/DL (8.5-10.1); Estimated Glom Filtration Rate 86 ML/MIN; Glucose 164 MG/DL (74-106); Osmolality,Calculated 284.4 MOS/KG (273-304); Total Protein 6.8 G/DL (6.4-8.3); Troponin I 0.158 NG/ML (0.00-0.045)
[2019-09-08 11:09] LABS: Apearance,Urine CLEAR (Clear); Bilirubin,Urine Negative (Negative); Blood, Urine Negative (Negative); Glucose,Urine (UA) Negative (Negative); Hyaline Casts,Urine 8 /LPF (0-3); Ketones,Urine Negative (Negative); Mucus,Urine Occasional /LPF (Occasional); Nitrite,Urine Negative (Negative); Protein,Urine Negative; RBC,Urine 1 /HPF (0-4); Squamous Epithelial Cell,Urine Occasional /HPF (0-10); Urine Color Yellow (Yellow); Urine Specific Gravity 1.009 (1.001-1.035); Urine Urobilinogen < 2.0 EU/DL (0.2-1.0); WBC,Urine <1 /HPF (0-6)
[2019-09-08 11:18] LABS: Barbiturates Screen,Urine Negative (Negative); Benzodiazepines Screen,Urine Negative (Negative); Cannabinoid Screen,Urine Negative (Negative); Opiate Screen,Urine Negative (Negative); Phencyclidine Screen,Urine Negative (Negative)
[2019-09-08 11:19] LABS: Hypochromasia 2+
[2019-09-08 11:20] LABS: Anisocytosis 2+; Microcytosis 1+; Platelet Estimate Normal; Polychromasia Slight; Stomatocytes Slight
[2019-09-08 11:21] LABS: Spherocytes Few
[2019-09-08] MEDS ORDERED: ONDANSETRON 4 MG/2 ML VIAL IV PRN (12:13)
[2019-09-08] MEDS ORDERED: DOCUSATE SODIUM 100 MG CAPSULE PO PRN (12:13)
[2019-09-08] MEDS ORDERED: diphenhydrAMINE 50 MG/1 ML VIAL IV PRN (12:17)
[2019-09-08] MEDS ORDERED: FUROSEMIDE 20 MG/2 ML VIAL IV PRN (12:17)
[2019-09-08] MEDS ORDERED: SODIUM CHLORIDE 0.9% 1,000 ML IV PRN (12:17)
[2019-09-08] MEDS ORDERED: DEXTROSE 10% 250 ML BAG IV PRN (14:10)
[2019-09-08] MEDS ORDERED: GLUCAGON 1 MG VIAL IM PRN (14:10)
[2019-09-08] MEDS: ACETAMINOPHEN 325 MG TABLET PO PRN (16:31)
[2019-09-08] MEDS: INSULIN LISPRO 100 UNIT/ML SUBCUT SCH (18:13)
[2019-09-08 20:06] LABS: INR 1.1
[2019-09-08] MEDS: ZALEPLON 5 MG CAPSULE PO PRN (20:24)
[2019-09-08] MEDS ORDERED: ZOLPIDEM 5 MG TABLET PO SCH (21:00)
[2019-09-08 23:42] LABS: Hematocrit 27.7 VOL% (42.0-52.0); Hemoglobin 8.4 GM/DL (14.0-18.0)
[2019-09-09] MEDS: INSULIN LISPRO 100 UNIT/ML SUBCUT SCH ×4 (01:23→18:46)
[2019-09-09] MEDS: SODIUM CHLORIDE 0.9% 1,000 ML IV SCH ×2 (01:23→08:22)
[2019-09-09] MEDS: ACETAMINOPHEN 325 MG TABLET PO PRN (02:51)
[2019-09-09 05:33] LABS: Basophils # 0.1 10*3/uL (0.0-0.2); Basophils % 1.8 % (0.0-0.8); Eosinophils # 0.1 10*3/uL (0.0-0.87); Eosinophils % 3.3 % (0.00-10.9); Hematocrit 28.9 VOL% (42.0-52.0); Hemoglobin 8.6 GM/DL (14.0-18.0); Immature Granulocytes % 2.5 %; Immature Granulocytes Absolute 0.07 #; Lymphocytes # 0.7 10*3/uL (1.4-4.0); Lymphocytes % 26.2 % (21.2-54.2); Mean Corpuscular HGB Conc 29.8 GM/DL (32-36); Mean Corpuscular Volume 86.3 FL (87-102); Mean Platelet Volume 11.5 FL (9.6-12.0); Monocytes % 14.9 % (1.7-12.7); Neutrophils % 51.3 % (38.7-73.9); Platelet Count 230 T/CUMM (130-400); Red Blood Count 3.35 MC/CUMM (3.8-5.5); Red Cell Distribution Width 15.9 % (9.3-17.3); White Blood Count 2.8 T/CUMM (4-12)
[2019-09-09] MEDS: LACTULOSE 20 GM/30 ML UDCUP PO PRN (05:35)
[2019-09-09 06:04] LABS: Albumin 2.9 G/DL (3.4-5.0); Bilirubin,Total 1.1 MG/DL (0.2-1.0); Calcium 8.2 MG/DL (8.5-10.1); Thyroid Stimulating Hormone 1.33 uIU/ml (0.358-3.74); Total Protein 6.3 G/DL (6.4-8.3)
[2019-09-09] MEDS ORDERED: PANTOPRAZOLE 40 MG VIAL IV SCH (09:00)
[2019-09-09 09:30] LABS: Atypical Lymphocytes Few; Eosinophils 2 % (0-10); Lymphocytes 23 % (20-55); Metamyelocytes 3 %; Myelocytes 2 %; Reactive Lymphocytes Few; Segmented Neutrophils 62 % (50-85); Total Cells Counted 100
[2019-09-09 09:31] LABS: Hypochromasia 1+; Microcytosis 1+; Platelet Estimate Normal; Polychromasia Slight
[2019-09-09] MEDS: PANTOPRAZOLE 40 MG VIAL IV SCH ×2 (10:19→20:30)
[2019-09-09] MEDS ORDERED: FUROSEMIDE 40 MG/4 ML VIAL IV ONE (12:42)
[2019-09-09] MEDS: VENLAFAXINE XR 75 MG CAPSULE PO SCH (15:20)
[2019-09-09] MEDS: NADOLOL 40 MG TABLET PO SCH (15:21)
[2019-09-09] MEDS: GABAPENTIN 300 MG CAPSULE PO SCH ×2 (15:21→20:28)
[2019-09-09] MEDS: NICOTINE 21 MG/24 HR PATCH TRANSDERM SCH (15:23)
[2019-09-09] MEDS: FUROSEMIDE 40 MG/4 ML VIAL IV SCH ×2 (15:24→19:10)
[2019-09-09] MEDS: SUCRALFATE 1 GM TABLET PO SCH ×2 (15:43→20:28)
[2019-09-09] MEDS: ZALEPLON 5 MG CAPSULE PO PRN (20:28)
[2019-09-09] MEDS: FERROUS SULFATE 325 MG TABLET PO SCH (20:29)
[2019-09-09] MEDS: ATORVASTATIN 40 MG TABLET PO SCH (20:29)
[2019-09-10] MEDS: INSULIN LISPRO 100 UNIT/ML SUBCUT SCH ×4 (02:10→18:22)
[2019-09-10 05:38] LABS: Basophils % 1.4 % (0.0-0.8); Eosinophils # 0.1 10*3/uL (0.0-0.87); Eosinophils % 3.5 % (0.00-10.9); Hematocrit 32.8 VOL% (42.0-52.0); Hemoglobin 9.6 GM/DL (14.0-18.0); Immature Granulocytes % 1.8 %; Immature Granulocytes Absolute 0.05 #; Lymphocytes # 0.6 10*3/uL (1.4-4.0); Lymphocytes % 21.5 % (21.2-54.2); Mean Corpuscular HGB Conc 29.3 GM/DL (32-36); Mean Corpuscular Volume 88.4 FL (87-102); Mean Platelet Volume 11.3 FL (9.6-12.0); Monocytes % 10.9 % (1.7-12.7); Neutrophils % 60.9 % (38.7-73.9); Platelet Count 249 T/CUMM (130-400); Red Blood Count 3.71 MC/CUMM (3.8-5.5); Red Cell Distribution Width 15.9 % (9.3-17.3); White Blood Count 2.8 T/CUMM (4-12)
[2019-09-10 06:05] LABS: % Iron Saturation 9.9 % (18-50)
[2019-09-10 06:07] LABS: Albumin 3.3 G/DL (3.4-5.0); Bilirubin,Total 1.4 MG/DL (0.2-1.0); Calcium 8.6 MG/DL (8.5-10.1)
[2019-09-10] MEDS: LACTATED RINGERS 500 ML IV SCH (07:30)
[2019-09-10] MEDS ORDERED: MAGNESIUM SULF RIDER 4 GM in PREMIX 1 EACH IV ONE (07:48)
[2019-09-10] MEDS ORDERED: POTASSIUM CHLORIDE 20 MEQ TABLET PO ONE (07:48)
[2019-09-10] MEDS ORDERED: LIDOCAINE 2% 5 ML VIAL ONE (09:00)
[2019-09-10] MEDS ORDERED: ETOMIDATE 20 MG/10 ML VIAL IV ONE (09:00)
[2019-09-10] MEDS: FUROSEMIDE 40 MG/4 ML VIAL IV SCH (09:12)
[2019-09-10] MEDS: GABAPENTIN 300 MG CAPSULE PO SCH ×3 (11:07→21:00)
[2019-09-10] MEDS: FERROUS SULFATE 325 MG TABLET PO SCH ×2 (11:08→21:00)
[2019-09-10] MEDS: VENLAFAXINE XR 75 MG CAPSULE PO SCH (11:08)
[2019-09-10] MEDS: NADOLOL 40 MG TABLET PO SCH (12:01)
[2019-09-10] MEDS: SPIRONOLACTONE 50 MG TABLET PO SCH (12:01)
[2019-09-10] MEDS: LOSARTAN 25 MG TABLET PO SCH (12:02)
[2019-09-10] MEDS: ACETAMINOPHEN 325 MG TABLET PO PRN (14:09)
[2019-09-10] MEDS: SUCRALFATE 1 GM TABLET PO SCH (15:18)
[2019-09-10] MEDS: PANTOPRAZOLE 40 MG VIAL IV SCH (15:18)
[2019-09-10] MEDS: NICOTINE 21 MG/24 HR PATCH TRANSDERM SCH (15:33)
[2019-09-10] MEDS: POTASSIUM CHLORIDE RIDER 10 MEQ in PREMIX 1 EACH IV PRN ×4 (15:36→18:48)
[2019-09-10] MEDS: LACTULOSE 20 GM/30 ML UDCUP PO PRN (17:47)
[2019-09-10] MEDS: PANTOPRAZOLE 40 MG TABLET PO SCH (18:23)
[2019-09-10] MEDS: ATORVASTATIN 40 MG TABLET PO SCH (20:59)
[2019-09-10] MEDS ORDERED: POTASSIUM CHLORIDE 20 MEQ TABLET PO SCH (21:00)
[2019-09-10] MEDS: ZALEPLON 5 MG CAPSULE PO PRN (21:01)
[2019-09-11] MEDS: INSULIN LISPRO 100 UNIT/ML SUBCUT SCH ×3 (00:53→12:21)
[2019-09-11 05:21] LABS: Basophils # 0.1 10*3/uL (0.0-0.2); Basophils % 1.8 % (0.0-0.8); Eosinophils # 0.1 10*3/uL (0.0-0.87); Eosinophils % 3.2 % (0.00-10.9); Immature Granulocytes % 1.1 %; Immature Granulocytes Absolute 0.03 #; Lymphocytes # 0.7 10*3/uL (1.4-4.0); Lymphocytes % 26.4 % (21.2-54.2); Mean Corpuscular HGB Conc 28.2 GM/DL (32-36); Mean Corpuscular Volume 91.7 FL (87-102); Mean Platelet Volume 11.7 FL (9.6-12.0); Monocytes % 14.1 % (1.7-12.7); Neutrophils % 53.4 % (38.7-73.9); Platelet Count 201 T/CUMM (130-400); Red Blood Count 3.36 MC/CUMM (3.8-5.5); Red Cell Distribution Width 15.8 % (9.3-17.3); White Blood Count 2.8 T/CUMM (4-12)
[2019-09-11 05:52] LABS: Hematocrit 30.6 VOL% (42.0-52.0)
[2019-09-11 05:53] LABS: Hemoglobin 8.7 GM/DL (14.0-18.0)
[2019-09-11 05:55] LABS: Albumin 2.9 G/DL (3.4-5.0); Calcium 8.4 MG/DL (8.5-10.1); Osmolality,Calculated 280.3 MOS/KG (273-304); Total Protein 6.2 G/DL (6.4-8.3)
[2019-09-11 06:11] LABS: Hypochromasia 1+; Platelet Estimate Adequate
[2019-09-11] MEDS: PANTOPRAZOLE 40 MG TABLET PO SCH (07:02)
[2019-09-11] MEDS: LACTATED RINGERS 500 ML IV SCH (08:28)
[2019-09-11] MEDS ORDERED: POTASSIUM CHLORIDE 20 MEQ TABLET PO SCH (09:00)
[2019-09-11] MEDS: GABAPENTIN 300 MG CAPSULE PO SCH (09:20)
[2019-09-11] MEDS: NADOLOL 40 MG TABLET PO SCH (09:20)
[2019-09-11] MEDS: FERROUS SULFATE 325 MG TABLET PO SCH (09:21)
[2019-09-11] MEDS: SPIRONOLACTONE 50 MG TABLET PO SCH (09:21)
[2019-09-11] MEDS: VENLAFAXINE XR 75 MG CAPSULE PO SCH (09:21)
[2019-09-11] MEDS: LOSARTAN 25 MG TABLET PO SCH (09:21)
[2019-09-11 12:02] VITALS: BP 113/68
[2019-09-11] MEDS: NICOTINE 21 MG/24 HR PATCH TRANSDERM SCH (12:26)
== END 2019-09-11 13:00 | disposition swing bed (61) | DRG 380 ==
LOC: EDBD → EDUNIT# → N.ED 09:06 → N.EDINP 12:13 → SUATTDRO 12:13 → N.3E 12:54
PROVIDERS: ADMIT Physician Assistant; ATTEND Family Medicine